=== PATIENT | male | born 1990 | race Caucasian/White ===

== ENCOUNTER 2025-04-26 11:25 | Emergency (ER) | payer OTHER, SELFPAY ==
[2025-04-26 11:37] VITALS: BP 138/97
[2025-04-26 12:47] LABS: % Basophils 1.3 % (0-2); % Eosinophils 7.5 % (0-6); % Immature Granulocytes 0.8 % (0-0.5); % Lymphocytes 19.9 % (20.5-51.1); % Monocytes 7.8 % (1.7-9.3); % Neutrophils 62.7 % (42.2-75.2); Absolute Basophils 0.1 10^3/uL (0-0.2); Absolute Eosinophils 0.8 10^3/uL (0-0.7); Absolute Immature Granulocytes 0.1 10^3/uL (0-0.05); Absolute Lymphocytes 2.1 10^3/uL (1.2-3.4); Absolute Monocytes 0.8 10^3/uL (0.1-0.6); Absolute Neutrophils 6.5 10^3/uL (1.4-6.5); Hematocrit 45.9 % (39.0-52.0); Hemoglobin 15.2 g/dL (13.0-18.0); Mean Corp Hgb Conc. 33.1 g/dL (33.0-37.0); Mean Corpuscular Hgb 29.6 pg (27.0-31.0); Mean Corpuscular Volume 89.5 fL (80.0-94.0); Mean Platelet Volume 10.9 fL (7.4-10.4); Nucleated Red Blood Cells % 0 % (-); Platelet Count 220 10^3/uL (130-400); Red Blood Cell Count 5.13 10^6/uL (4.70-6.10); Red Cell Dist. Width 11.8 % (11.5-14.5); White Blood Cell Count 10.3 10^3/uL (4.8-10.8)
[2025-04-26 13:10] LABS: ALT (SGPT) 114 U/L (0-50); AST (SGOT) 58 U/L (17-59); Albumin 5.1 g/dl (3.5-5.0); Alkaline Phosphatase 51 U/L (38-126); Blood Urea Nitrogen 13 mg/dl (9-20); Calcium 10.2 mg/dl (8.4-10.2); Carbon Dioxide 27 mmol/L (22-30); Chloride 109 mmol/L (98-107); Glucose 109 mg/dl (70-99); Lipase 43 U/L (23-300); Potassium 4.9 mmol/L (3.5-5.1); Sodium 145 mmol/L (135-145); Total Protein 8.1 g/dl (6.3-8.2); eGFR > 60.00
[2025-04-26 13:41] LABS: Urine Albumin 1+ (Neg - Trace); Urine Bilirubin Negative (Negative); Urine Character Clear (Clear); Urine Color Yellow; Urine Glucose Negative (Negative); Urine Ketone Negative (Negative); Urine Leukocyte Negative (Negative); Urine Nitrite Negative (Negative); Urine Occult Blood Negative (Negative); Urine Urobilinogen Negative (Neg - 1+)
[2025-04-26 13:49] VITALS: BP 141/89
--- NOTE | 2025-04-26 13:57 | ED.GENMED ---
History of Present Illness
<Scot Valencia MD - Last Filed: 04/26/25 13:58>
General
Chief Complaint: Abdominal Symptoms
Time Seen by Provider: 04/26/25 13:43
<Gladys Fernandez NP - Last Filed: 04/26/25 17:02>
General
Source: patient
Exam Limitations: none
Nursing documentation reviewed up to this point in time: agreed with
History of Present Illness
History of Present Illness:
34-year-old male with no significant past medical history is here for a lump by his bellybutton that he felt today. He states yesterday he felt a pulling or tugging sensation in the area. There is no significant pain but it is annoying.
Past History
<Gladys Fernandez MACHINIST MATE - Last Filed: 04/26/25 17:02>
Past History
ED Past Medical History: None
ED Past Surgical History: None
Social History
Tobacco: Non-smoker
Alcohol: Occasional
Personal:
Living: with family
Employment: Employed
Review of Systems
<Gladys Fernandez NP - Last Filed: 04/26/25 17:02>
Review of Systems
Allergies reviewed?: Yes
All Other Systems: ROS reviewed and negative except as documented in HPI and ROS
ABD/GI: Reports abdominal pain (lump by belly button)
Phy Exam
<Gladys Fernandez MACHINIST MATE - Last Filed: 04/26/25 17:02>
Physical Exam
Physical Exam:
GENERAL: No acute distress. A&Ox3.
CONSTITUTIONAL: Afebrile.
RESPIRATORY: Regular respirations, nonlabored, lungs clear.
CARDIOVASCULAR: Regular rate and rhythm, no murmurs, no rubs.
GI: Soft, tender mass between 10-12 o'clock periumbilical region. normal BS
MUSCULOSKELETAL: Moves with ease. Well perfused.
SKIN: Warm, dry, pink
PSYCH: Normal mood and affect. Well kept, interactive and appropriate
NEUROLOGIC: Awake, alert and oriented. No focal neurological deficits
Course
<Scot Valencia MD - Last Filed: 04/26/25 13:58>
Orders/Labs/Results
Orders:
Orders
04/26/25 12:37
Complete Blood Count/With Diff Urgent
Comprehensive Metabolic Panel Urgent
Lipase Urgent
04/26/25 13:29
Urinalysis Reflex To Culture Urgent
Date Specimen was Collected: 04/26/25
Time Specimen was Collected: 12:17
Urine Microscopic Reflex Cult Urgent
04/26/25 13:52
CT Abd/pel W Iv And Oral Contr Urgent
Comment:
Reason For Exam: periumbilical pain with bulge
Iohexol [Omnipaque] See Protocol PO NOW STA
Abnormal Lab Results
04/26/25 04/26/25
12:37 13:29
MPV 10.9 H fL
(7.4-10.4)
Abs Immat Gran (auto) 0.1 H 10^3/uL
(0-0.05)
Absolute Monos (auto) 0.8 H 10^3/uL
(0.1-0.6)
Absolute Eos (auto) 0.8 H 10^3/uL
(0-0.7)
Immature Gran % 0.8 H %
(0-0.5)
Lymphocytes % 19.9 L %
(20.5-51.1)
Eosinophils % 7.5 H %
(0-6)
Chloride 109 H mmol/L
(98-107)
Glucose 109 H mg/dl
(70-99)
ALT 114 H U/L
(0-50)
Albumin 5.1 H g/dl
(3.5-5.0)
Urine Albumin (Reflex) 1+ A
(Neg - Trace)
04/26/25 12:37
04/26/25 12:37
Vital Signs
Initial and Last Documented VS:
Initial Vital Signs
Temp Pulse Resp BP Pulse Ox
97.7 F 77 18 138/97 97
04/26/25 11:37 04/26/25 11:37 04/26/25 11:37 04/26/25 11:37 04/26/25 11:37
Last Documented Vital Signs
Temp Pulse Resp BP Pulse Ox
97.7 F 74 16 135/88 98
04/26/25 11:37 04/26/25 16:04 04/26/25 16:04 04/26/25 16:04 04/26/25 16:04
<Gladys Fernandez, MACHINIST MATE - Last Filed: 04/26/25 17:02>
Orders/Labs/Results
Orders:
Orders
04/26/25 12:37
Complete Blood Count/With Diff Urgent
Comprehensive Metabolic Panel Urgent
Lipase Urgent
04/26/25 13:29
Urinalysis Reflex To Culture Urgent
Date Specimen was Collected: 04/26/25
Time Specimen was Collected: 12:17
Urine Microscopic Reflex Cult Urgent
04/26/25 13:52
CT Abd/pel W Iv And Oral Contr Urgent
Comment:
Reason For Exam: periumbilical pain with bulge
Iohexol [Omnipaque] See Protocol PO NOW STA
Abnormal Lab Results
04/26/25 04/26/25
12:37 13:29
MPV 10.9 H fL
(7.4-10.4)
Abs Immat Gran (auto) 0.1 H 10^3/uL
(0-0.05)
Absolute Monos (auto) 0.8 H 10^3/uL
(0.1-0.6)
Absolute Eos (auto) 0.8 H 10^3/uL
(0-0.7)
Immature Gran % 0.8 H %
(0-0.5)
Lymphocytes % 19.9 L %
(20.5-51.1)
Eosinophils % 7.5 H %
(0-6)
Chloride 109 H mmol/L
(98-107)
Glucose 109 H mg/dl
(70-99)
ALT 114 H U/L
(0-50)
Albumin 5.1 H g/dl
(3.5-5.0)
Urine Albumin (Reflex) 1+ A
(Neg - Trace)
04/26/25 12:37
04/26/25 12:37
Vital Signs
Initial and Last Documented VS:
Initial Vital Signs
Temp Pulse Resp BP Pulse Ox
97.7 F 77 18 138/97 97
04/26/25 11:37 04/26/25 11:37 04/26/25 11:37 04/26/25 11:37 04/26/25 11:37
Last Documented Vital Signs
Temp Pulse Resp BP Pulse Ox
97.7 F 74 16 135/88 98
04/26/25 11:37 04/26/25 16:04 04/26/25 16:04 04/26/25 16:04 04/26/25 16:04
Food Safety Coordinator consulted with Physician
Food Safety Coordinator consulted with physician?: Yes
Name of Physician Consulted: Erik
<Gladys Fernandez NP - Last Filed: 04/26/25 17:02>
MDM/Problems Addressed
Differential Diagnosis Includes:
periumbilical hernia, incarcerated hernia
MDM/Problems Addressed:
34-year-old male with no significant past medical history is here for a lump by his bellybutton that he felt today. He states yesterday he felt a pulling or tugging sensation in the area. There is no significant pain but it is annoying.
Tender periumbilical mass
Dr. Valencia consulted and in , attempted to reduce it.
Pt with no significant pain, no sign of incarceration. No sign of bowel obstruction
3:00 p.m.
CBC unremarkable
CMP with no clinically significant abnormality mild elevation ALT most likely reactive to inflammation.
5:[address] abdomen/Pelvis with po and IV contrast: Radiology report read
IMPRESSION:
Inflammatory fat stranding of a small hernia just above the umbilicus to the right of midline that contains mesenteric fat.
Pt given copy of CT report.
ED Attending Note
<Scot Valencia MD - Last Filed: 04/26/25 13:58>
ED Attending Note
Patient seen and examined by attending physician: Yes
I performed the substantive portion of visit, reviewed & personally made and approve the management plan that is documented in note by myself or GIBRAN.: Yes
ED Attending Note:
Patient with 2 days of right periumbilical pain. [place] a lump there. Only nauseous after googling the symptoms. No vomiting no diarrhea or bloody stools no fever no other complaints
On exam patient is nontoxic in no distress. No abdominal distention. There is a small right periumbilical tenderness and reducible hernia. No rebound or guarding no mass or hernia
Will get CT scan for completeness. Very likely not incarcerated.
-
Portions of this chart may have been created with voice recognition software.� Occasional wrong word or��sound alike� substitutions may have occurred due to the inherent limitations of voice recognition software.
Discharge Plan
Departure
Condition: Good
Discharge Problem:
Need for immunization against rabies
Instructions: Rabies Immune Globulin (Human), Rabies Vaccine
Prescriptions:
New
RabAvert (PF) 2.5 unit suspension for reconstitution
1 ml IM ONCE Qty: 3 0RF
Rx Instructions:
Rab Avert 1 ml IM on 04/29, 05/03, 05/10
Interventions
Interventions:
*Risk Screen - Suicide Last Done: 04/26/25 11:37
*General Assessment Last Done: 04/26/25 11:37
*Neglect/Abuse Screening Last Done: 04/26/25 11:37
*ED- Fall Risk Assessment Last Done: 04/26/25 13:09
*ED COVID-19 Vaccine History Last Done: 04/26/25 13:09
FL-[id number]-[id number] Assessment Last Done: 04/26/25 13:09
Discharge Date and Time
Print Language: MALAGASY
[2025-04-26] MEDS: OMNIPAQUE 50 ML PO (14:06)
[2025-04-26 14:28] LABS: Urine Amorphous Seen
[2025-04-26 14:29] LABS: Urine Red Blood Cell 0-2 /HPF (0-2); Urine White Cell 0-2 /HPF (0-5)
[2025-04-26 16:04] VITALS: BP 135/88
== END 2025-04-26 17:09 | disposition home or self-care (01) ==
LOC: EMR 11:25
PROVIDERS: Emergency Medicine; EMERGENCY PHYSICIAN Emergency Medicine
DX: K42.9 Umbilical hernia without obstruction or gangrene (principal)
CPT/HCPCS: 99284; 74177; 80053; 81003; 81015; 83690; 85025; Q9967